=== PATIENT | male | born 2000 | race Caucasian/White ===

== ENCOUNTER 2021-02-01 12:38 | Emergency (ER) | payer BC ==
[2021-02-01] MEDS ORDERED: Sodium Chloride 0.9% 10 ML Syringe FLUSH PRN (12:55)
[2021-02-01] MEDS ORDERED: Sodium Chloride 0.9% 1,000 ML IV ONE ×2 (12:56→15:19)
[2021-02-01] MEDS ORDERED: Promethazine 25 MG/ML SDV IM ONE (12:57)
[2021-02-01 13:32] LABS: ANION GAP 14.6 meq/L (7-15); CHLORIDE,CL 107 mmol/L (98-107); SODIUM,NA 144 mmol/L (136-145)
[2021-02-01 13:48] VITALS: BP 126/77; PULSE 65
[2021-02-01 14:00] LABS: CORONAVIRUS COVID-19 NAA NEGATIVE (NEGATIVE)
[2021-02-01 14:01] LABS: RESPIRATORY SYNCYTIAL VIR NAA NEGATIVE (NEGATIVE)
--- NOTE | 2021-02-01 15:34 | EDM.PDOC ---
ED HPI GENERAL MEDICAL PROBLEM - General Chief Complaint: Abdominal Pain Stated Complaint: nausea Time Seen by Provider: 02/01/21 12:55 Source of Information: Reports: Patient, Family History Limitations: Reports: No Limitations - History of Present Illness INITIAL COMMENTS - FREE TEXT/NARRATIVE: Patient comes to ER with multiple complaints. Reports nausea for two weeks. Has not been feeling well entire time. Symptoms include muscle aches, dizziness, loose stools, productive cough, sore throat. Lungs ache. No fevers/chills. No SOB. Had telehealth visit with [facility] during that time and received Zofran. Was told to follow up with them if no improvement. Works 3rd shift at [employer]. Negative Covid test approx a week ago. Mother reports that patient has had similar episodes intermittently since he was a child. Would cause him to miss school for 3-4 days at a time. No specific cause of episodes identified. Severity of episodes increasing as pt has gotten older. Patient lives by himself at an apartment. Upper Abdominal Pain Score (Numeric/FACES): 6 - Related Data Allergies Allergy/AdvReac Type Severity Reaction Status Date / Time Penicillins Allergy Rash Verified 02/01/21 12:41 Home Meds: Home Meds Ondansetron [Zofran ODT] 1 tab SL Q6H PRN 02/01/21 [History] Past Medical History HEENT History: Reports: Impaired Vision Other HEENT History: Corrected with glasses. Gastrointestinal History: Reports: GERD, Other (See Below) Other Gastrointestinal History: Intermittent episodes abdominal pain with nausea/emesis/loose stools since he was child. Musculoskeletal History: Reports: Other (See Below) Other Musculoskeletal History: Recently seen for strained neck muscle Endocrine/Metabolic History: Reports: Obesity/BMI 30+ Dermatologic History: Reports: Urticaria, Other (See Below) Other Dermatologic History: Current rash, red in color with small, multiple pustules covering anterior and posterior truck, neck, bilateral upper arms and spreading distally, rash starting slightly on bilateral upper thighs and spreading slowly distally. - Past Surgical History HEENT Surgical History: Reports: Adenoidectomy, Tonsillectomy GI Surgical History: Reports: None Social & Family History - Tobacco Use Tobacco Use Status *Q: Never Tobacco User Second Hand Smoke Exposure: No - Caffeine Use Caffeine Use: Reports: Energy Drinks - Alcohol Use Alcohol Use History: No - Recreational Drug Use Recreational Drug Use: Yes Recreational Drug Type: Reports: Marijuana/Hashish Recreational Drug Use Comment: Patient denied using any illicit drugs but was positive for THC on drug screen ED ROS GENERAL - Review of Systems Review Of Systems: See Below Constitutional: Reports: Malaise, Decreased Appetite. Denies: Fever, Chills, Weakness, Night Sweats, Diaphoresis, Weight Loss HEENT: Reports: Throat Pain. Denies: Ear Pain, Rhinitis, Vertigo, Vision Change Respiratory: Reports: Cough, Sputum. Denies: Shortness of Breath, Wheezing, Pleuritic Chest Pain, Hemoptysis Cardiovascular: Reports: Lightheadedness. Denies: Chest Pain, Dyspnea on Exertion, Edema, Palpitations, PND, Syncope GI/Abdominal: Reports: Abdominal Pain, Diarrhea, Decreased Appetite, Nausea, Vomiting. Denies: Black Stool, Bloody Stool, Difficulty Swallowing, Distension : Reports: No Symptoms Musculoskeletal: Reports: Muscle Pain Skin: Reports: No Symptoms Neurological: Reports: Headache. Denies: Confusion, Dizziness, Paresthesia, Trouble Speaking, Difficulty Walking, Change in Speech Psychiatric: Reports: No Symptoms ED EXAM, GENERAL - Physical Exam Exam: See Below Exam Limited By: No Limitations General Appearance: Alert, Obese, Other (Keeps eyes shut most of encounter, no obvious acute distress) Eye Exam: Bilateral Eye: EOMI, PERRL Ears: Normal External Exam, Normal Canal, Hearing Grossly Normal, Normal TMs Nose: Normal Inspection Throat/Mouth: Normal Inspection, Normal Lips, Normal Oropharynx, Normal Voice, No Airway Compromise Head: Atraumatic, Normocephalic Neck: Normal Inspection, Supple, Non-Tender, Full Range of Motion Respiratory/Chest: No Respiratory Distress, Lungs Clear, Normal Breath Sounds, No Accessory Muscle Use Cardiovascular: Normal Peripheral Pulses, Regular Rate, Rhythm, No Murmur GI/Abdominal: Tender (moderate discomfort with palpation all 4 quadrants, non- focal), Abnormal Bowel Sounds (decreased bowel sounds throughout). No: Guarding, Rigid, Rebound (Male) Exam: Deferred Rectal (Males) Exam: Deferred Back Exam: No: CVA Tenderness (L), CVA Tenderness (R), Muscle Spasm, Paraspinal Tenderness, Vertebral Tenderness Extremities: Normal Inspection, Normal Range of Motion, Non-Tender, Other (cap refill 3-4 sec) Neurological: Alert, Oriented, Normal Cognition, No Motor/Sensory Deficits Psychiatric: Flat Affect Skin Exam: Warm, Dry, Intact, Normal Color Course - Vital Signs Last Recorded V/S: Last Vital Signs Temp 36.6 C 02/01/21 12:44 Pulse 65 02/01/21 13:43 Resp 20 02/01/21 13:43 BP 126/77 02/01/21 13:43 Pulse Ox 100 02/01/21 13:43 - Orders/Labs/Meds Orders: Active Orders 24 hr Category Date Time Status Abdomen Pelvis w Cont [CT] Stat Exams 02/01/21 15:17 Ordered Chest 2V [CR] Stat Exams 02/01/21 12:55 Taken STREP SCRN A RAPID W CULT CONF [RM] Stat Lab 02/01/21 13:06 Received Saline Lock Insert [OM.PC] Routine Oth 02/01/21 12:55 Ordered Labs: Laboratory Tests 02/01/21 02/01/21 02/01/21 Range/Units 13:06 13:06 13:06 WBC 7.5 (4.0-10.2) K/uL RBC 4.91 (4.33-5.41) M/uL Hgb 14.4 (13.1-16.8) g/dL Hct 41.9 (39.0-49.0) % MCV 85.3 (84.0-98.0) fL MCH 29.3 (28.2-33.3) pg MCHC 34.4 (31.7-36.0) g/dL RDW 12.8 (11.2-14.1) % Plt Count 239 (150-350) K/uL Neut % (Auto) 49.4 (45.0-80.0) % Lymph % (Auto) 37.7 (10.0-50.0) % Cannon % (Auto) 9.0 (2.0-14.0) % Eos % (Auto) 3.4 (0.0-5.0) % Baso % (Auto) 0.5 (0.0-2.0) % Neut # (Auto) 3.69 (1.40-7.00) K/uL Lymph # (Auto) 2.81 (0.50-3.50) K/uL Cannon # (Auto) 0.67 (0.00-1.00) K/uL Eos # (Auto) 0.25 (0.00-0.50) K/uL Baso # (Auto) 0.04 (0.00-0.20) K/uL D-Dimer, Quantitative < 100 (0-400) ng/mL Sodium 144 (136-145) mmol/L Potassium 3.5 (3.5-5.1) mmol/L Chloride 107 (98-107) mmol/L Carbon Dioxide 22.4 (21.0-32.0) mmol/L Anion Gap 14.6 (7-15) meq/L BUN 11 (7-18) mg/dL Creatinine 1.16 (0.51-1.17) mg/dL Est Cr Clr Drug Dosing 116.14 mL/min Estimated GFR (MDRD) > 60 mL/min Glucose 87 (70-99) mg/dL Lactic Acid (0.4-2.0) mmol/L Calcium 9.2 (8.5-10.1) mg/dL Magnesium 2.0 (1.8-2.4) mg/dL Total Bilirubin 0.5 (0.2-1.0) mg/dL AST 19 (15-37) U/L ALT 43 (12-78) U/L Alkaline Phosphatase 91 (46-116) IU/L Total Protein 7.0 (6.4-8.2) g/dL Albumin 4.3 (3.4-5.0) g/dL Amylase (25-115) U/L Lipase (73-393) U/L Specimen Type Urine Color Urine Appearance Urine pH (5.0-9.0) Ur Specific [place] (1.005-1.030) Urine Protein (NEGATIVE) mg/dL Urine Glucose (UA) (NEGATIVE) mg/dL Urine Ketones (NEGATIVE) mg/dL Urine Occult Blood (NEGATIVE) Urine Nitrite (NEGATIVE) Urine Bilirubin (NEGATIVE) Urine Urobilinogen (0.2-1.0) E.U./dL Ur Leukocyte Esterase (NEGATIVE) Urine RBC /HPF Urine WBC /HPF Ur Epithelial Cells /LPF Urine Bacteria (NONE TO FEW) /HPF Urine Opiates Screen (NEGATIVE) Ur Buprenorphine Scrn (NEGATIVE) Ur Oxycodone Screen (NEGATIVE) Ur EDDP (Meth Metab) (NEGATIVE) Ur Barbiturates Screen (NEGATIVE) Ur Tricyclics Screen (NEGATIVE) Ur Amphetamine Screen (NEGATIVE) U Methamphetamines Scrn (NEGATIVE) Urine MDMA Screen (NEGATIVE) U Benzodiazepines Scrn (NEGATIVE) U Cocaine Metab Screen (NEGATIVE) U Marijuana (THC) Screen (NEGATIVE) Influenza Type A RNA (NEGATIVE) RSV RNA (INAAT) (NEGATIVE) Influenza Type B RNA (NEGATIVE) SARS-CoV-2 RNA (ELY) (NEGATIVE) 02/01/21 02/01/21 02/01/21 Range/Units 13:06 13:06 13:06 WBC (4.0-10.2) K/uL RBC (4.33-5.41) M/uL Hgb (13.1-16.8) g/dL Hct (39.0-49.0) % MCV (84.0-98.0) fL MCH (28.2-33.3) pg MCHC (31.7-36.0) g/dL RDW (11.2-14.1) % Plt Count (150-350) K/uL Neut % (Auto) (45.0-80.0) % Lymph % (Auto) (10.0-50.0) % Cannon % (Auto) (2.0-14.0) % Eos % (Auto) (0.0-5.0) % Baso % (Auto) (0.0-2.0) % Neut # (Auto) (1.40-7.00) K/uL Lymph # (Auto) (0.50-3.50) K/uL Cannon # (Auto) (0.00-1.00) K/uL Eos # (Auto) (0.00-0.50) K/uL Baso # (Auto) (0.00-0.20) K/uL D-Dimer, Quantitative (0-400) ng/mL Sodium (136-145) mmol/L Potassium (3.5-5.1) mmol/L Chloride (98-107) mmol/L Carbon Dioxide (21.0-32.0) mmol/L Anion Gap (7-15) meq/L BUN (7-18) mg/dL Creatinine (0.51-1.17) mg/dL Est Cr Clr Drug Dosing mL/min Estimated GFR (MDRD) mL/min Glucose (70-99) mg/dL Lactic Acid 1.6 (0.4-2.0) mmol/L Calcium (8.5-10.1) mg/dL Magnesium (1.8-2.4) mg/dL Total Bilirubin (0.2-1.0) mg/dL AST (15-37) U/L ALT (12-78) U/L Alkaline Phosphatase (46-116) IU/L Total Protein (6.4-8.2) g/dL Albumin (3.4-5.0) g/dL Amylase 61 (25-115) U/L Lipase 172 (73-393) U/L Specimen Type Urine Color Urine Appearance Urine pH (5.0-9.0) Ur Specific [place] (1.005-1.030) Urine Protein (NEGATIVE) mg/dL Urine Glucose (UA) (NEGATIVE) mg/dL Urine Ketones (NEGATIVE) mg/dL Urine Occult Blood (NEGATIVE) Urine Nitrite (NEGATIVE) Urine Bilirubin (NEGATIVE) Urine Urobilinogen (0.2-1.0) E.U./dL Ur Leukocyte Esterase (NEGATIVE) Urine RBC /HPF Urine WBC /HPF Ur Epithelial Cells /LPF Urine Bacteria (NONE TO FEW) /HPF Urine Opiates Screen (NEGATIVE) Ur Buprenorphine Scrn (NEGATIVE) Ur Oxycodone Screen (NEGATIVE) Ur EDDP (Meth Metab) (NEGATIVE) Ur Barbiturates Screen (NEGATIVE) Ur Tricyclics Screen (NEGATIVE) Ur Amphetamine Screen (NEGATIVE) U Methamphetamines Scrn (NEGATIVE) Urine MDMA Screen (NEGATIVE) U Benzodiazepines Scrn (NEGATIVE) U Cocaine Metab Screen (NEGATIVE) U Marijuana (THC) Screen (NEGATIVE) Influenza Type A RNA Negative (NEGATIVE) RSV RNA (INAAT) Negative (NEGATIVE) Influenza Type B RNA Negative (NEGATIVE) SARS-CoV-2 RNA (ELY) Negative (NEGATIVE) 02/01/21 02/01/21 Range/Units 13:24 13:24 WBC (4.0-10.2) K/uL RBC (4.33-5.41) M/uL Hgb (13.1-16.8) g/dL Hct (39.0-49.0) % MCV (84.0-98.0) fL MCH (28.2-33.3) pg MCHC (31.7-36.0) g/dL RDW (11.2-14.1) % Plt Count (150-350) K/uL Neut % (Auto) (45.0-80.0) % Lymph % (Auto) (10.0-50.0) % Cannon % (Auto) (2.0-14.0) % Eos % (Auto) (0.0-5.0) % Baso % (Auto) (0.0-2.0) % Neut # (Auto) (1.40-7.00) K/uL Lymph # (Auto) (0.50-3.50) K/uL Cannon # (Auto) (0.00-1.00) K/uL Eos # (Auto) (0.00-0.50) K/uL Baso # (Auto) (0.00-0.20) K/uL D-Dimer, Quantitative (0-400) ng/mL Sodium (136-145) mmol/L Potassium (3.5-5.1) mmol/L Chloride (98-107) mmol/L Carbon Dioxide (21.0-32.0) mmol/L Anion Gap (7-15) meq/L BUN (7-18) mg/dL Creatinine (0.51-1.17) mg/dL Est Cr Clr Drug Dosing mL/min Estimated GFR (MDRD) mL/min Glucose (70-99) mg/dL Lactic Acid (0.4-2.0) mmol/L Calcium (8.5-10.1) mg/dL Magnesium (1.8-2.4) mg/dL Total Bilirubin (0.2-1.0) mg/dL AST (15-37) U/L ALT (12-78) U/L Alkaline Phosphatase (46-116) IU/L Total Protein (6.4-8.2) g/dL Albumin (3.4-5.0) g/dL Amylase (25-115) U/L Lipase (73-393) U/L Specimen Type Urinvoid Urine Color Yellow Urine Appearance Clear Urine pH >= 9.0 (5.0-9.0) Ur Specific [place] 1.015 (1.005-1.030) Urine Protein Trace H (NEGATIVE) mg/dL Urine Glucose (UA) Negative (NEGATIVE) mg/dL Urine Ketones Negative (NEGATIVE) mg/dL Urine Occult Blood Negative (NEGATIVE) Urine Nitrite Negative (NEGATIVE) Urine Bilirubin Negative (NEGATIVE) Urine Urobilinogen 0.2 (0.2-1.0) E.U./dL Ur Leukocyte Esterase Negative (NEGATIVE) Urine RBC Not seen /HPF Urine WBC Not seen /HPF Ur Epithelial Cells Occasional /LPF Urine Bacteria Occasional (NONE TO FEW) /HPF Urine Opiates Screen Negative (NEGATIVE) Ur Buprenorphine Scrn Negative (NEGATIVE) Ur Oxycodone Screen Negative (NEGATIVE) Ur EDDP (Meth Metab) Negative (NEGATIVE) Ur Barbiturates Screen Negative (NEGATIVE) Ur Tricyclics Screen Negative (NEGATIVE) Ur Amphetamine Screen Negative (NEGATIVE) U Methamphetamines Scrn Negative (NEGATIVE) Urine MDMA Screen Negative (NEGATIVE) U Benzodiazepines Scrn Negative (NEGATIVE) U Cocaine Metab Screen Negative (NEGATIVE) U Marijuana (THC) Screen Positive H (NEGATIVE) Influenza Type A RNA (NEGATIVE) RSV RNA (INAAT) (NEGATIVE) Influenza Type B RNA (NEGATIVE) SARS-CoV-2 RNA (ELY) (NEGATIVE) Meds: Medications Discontinued Medications Generic Name Dose Route Start Last Admin Trade Name Freq PRN Reason Stop Dose Admin Diatrizoate Meglum/Diatrizoate Sod 30 ml 02/01/21 16:00 02/01/21 16:25 Diatrizoate Meglumine/Diatrizoate Sodium 37% 30 Ml Bottle PO 02/01/21 16:01 30 ml ONETIME ONE Administration Sodium Chloride 1,000 mls @ 999 mls/hr 02/01/21 12:56 02/01/21 13:37 Normal Saline IV 02/01/21 13:56 999 mls/hr .BOLUS ONE Administration Sodium Chloride 1,000 mls @ 500 mls/hr 02/01/21 15:19 02/01/21 16:29 Normal Saline IV 02/01/21 17:18 500 mls/hr .BOLUS ONE Administration Iopamidol 100 ml 02/01/21 16:00 02/01/21 16:25 Iopamidol 612 Mg/Ml 100 Ml Bottle IVPUSH 02/01/21 16:01 100 ml ONETIME ONE Administration Promethazine HCl 25 mg 02/01/21 12:57 02/01/21 13:19 Promethazine 25 Mg/Ml Sdv IM 02/01/21 12:58 25 mg ONETIME ONE Administration Sodium Chloride 10 ml 02/01/21 12:55 02/01/21 16:28 Sodium Chloride 0.9% 10 Ml Syringe FLUSH 10 ml ASDIRECTED PRN Administration Keep Vein Open - Re-Assessments/Exams Free Text/Narrative Re-Assessment/Exam: 02/01/21 15:46 Patient's vital signs stable. Afebrile. Chest xray unremarkable for focal pneumonia/acute changes. Basic labs obtained and IV fluid bolus + phenergan ordered. Patient appeared to be comfortably sleeping while labs processed. Labs unremarkable, including CBC/Chem/Mag/Lactic/amylase/lipase/ddimer/UA/Covid/Influenza/RSV. Call placed to patient's primary clinic, [facility], and patient reviewed with provider familiar with patient. She notes that patient usually only presents to clinic when he wants a work note, and that he has a histrionic pattern when presenting to clinic. Clinic has discussed arranging for celiac testing with patient. It was noted here that when patient was questioned he would be more dramatic with breathing pattern and with interaction with caregivers, but would quickly revert to sleeping and have normal respiratory pattern when left alone. Given the unremarkable workup and chronic pattern of patient's symptoms, this may reflect food sensitivity or other chronic GI disorder. He has not had an abdominal CT per Mom, and for a more thorough workup a CT study was ordered. Will given an additional liter of IV fluids while waiting for results. Free Text/Narrative Re-Assessment/Exam: 02/01/21 18:05 No Radiology report received as of yet. Patient sleeping in ER. Patient's mother requests a note for [employer] excusing patient from working tonight. Free Text/Narrative Re-Assessment/Exam: 02/01/21 19:00 Significant hold up in receiving Radiology report. Pt and his mother wish to be discharged home and have us call with results. Patient up and walking. No distress. Appears comfortable. OK to be discharged from ER. Will call with Radiology results once available. To follow up with [facility]/consider GI referral and additional testing as needed. 02/01/21 19:52 CT report available. No acute findings. Mild bladder wall thickening questioned. Pt denied urinary complaints and had normal UA. Incidental small lung finding that may reflect granuloma. Will need to follow up for that with PCP and be rechecked at some point. Patient did have + result for THC. Differential now includes Cannabis-induced abdominal pain/hyperemesis. Nursing contacted patient's mother with results (he gave permission verbally with us to share during stay in ER. Mother present and stayed with patient during entire ED encounter) Departure - Departure Time of Disposition: 19:04 Disposition: Home, Self-Care 01 Condition: Good Clinical Impression: Nausea vomiting and diarrhea, Cough, Marijuana use, Nodule of lower lobe of left lung - Discharge Information *PRESCRIPTION DRUG MONITORING PROGRAM REVIEWED*: Not Applicable *COPY OF PRESCRIPTION DRUG MONITORING REPORT IN PATIENT MARY: Not Applicable Instructions: Food Choices to Help Relieve Diarrhea, Adult Referrals: Heidi Ovalle PA-C [Primary Care Provider] - Forms: ED Department Discharge Additional Instructions: Follow up with [facility] for recheck tomorrow or if symptoms not improving. Rest/hydration. Strongly advise considering elimination diet based on history of frequent similar episodes over the years. Consider GI referral from [facility] for further evaluation. We will call you if there are concerns on CT study once Radiology contacts us with results. Sepsis Event Note (ED) - Evaluation Sepsis Screening Result: No Definite Risk - Focused Exam Vital Signs: Vital Signs Temp Pulse Resp BP Pulse Ox 02/01/21 13:43 65 20 126/77 100 02/01/21 13:00 78 20 142/72 H 100 02/01/21 12:44 36.6 C 68 24 H 146/86 H 100 - My Orders Last 24 Hours: My Active Orders 02/01/21 12:55 Chest 2V [CR] Stat Saline Lock Insert [OM.PC] Routine 02/01/21 13:06 STREP SCRN A RAPID W CULT CONF [RM] Stat 02/01/21 15:17 Abdomen Pelvis w Cont [CT] Stat - Assessment/Plan Last 24 Hours: My Active Orders 02/01/21 12:55 Chest 2V [CR] Stat Saline Lock Insert [OM.PC] Routine 02/01/21 13:06 STREP SCRN A RAPID W CULT CONF [RM] Stat 02/01/21 15:17 Abdomen Pelvis w Cont [CT] Stat
[2021-02-01] MEDS ORDERED: Diatrizoate Meglumine/Diatrizoate Sodium 37% 30 ML Bottle PO ONE (16:00)
[2021-02-01] MEDS ORDERED: Iopamidol 612 MG/ML 100 ML Bottle IVPUSH ONE (16:00)
[2021-02-01 16:31] LABS: BARBITURATE SCREEN,URINE NEGATIVE (NEGATIVE); BENZODIAZEPINES SCREEN,URINE NEGATIVE (NEGATIVE); BUPRENORPHINE SCREEN,URINE NEGATIVE (NEGATIVE); EDDP,URINE SCREEN NEGATIVE (NEGATIVE); TCA SCREEN,URINE NEGATIVE (NEGATIVE); THC SCREEN,URINE 50 NG/ML POSITIVE (NEGATIVE)
== END 2021-02-01 19:20 | disposition home or self-care (01) ==
LOC: LL.ED 12:38
DX: R11.2 Nausea with vomiting, unspecified (principal); R19.7 Diarrhea, unspecified; R05.9 Cough, unspecified; R91.1 Solitary pulmonary nodule; F12.90 Cannabis use, unspecified, uncomplicated; E66.9 Obesity, unspecified; Z88.0 Allergy status to penicillin; Z20.822 Contact with and (suspected) exposure to COVID-19; Z68.35 Body mass index [BMI] 35.0-35.9, adult
CPT/HCPCS: 0241U; 36415; 71046; 74177; 80053; 80305-QW; 81001; 82150; 83605; 83690; 83735; 85025; 85379; 87081; 87430; 96372; 99284; 99284-25; J2550; J7030; Q9963; Q9967

== ENCOUNTER 2021-03-24 10:13 | Day surgery (SDC) | payer BC ==
[~2021-03-24 10:13] MED LIST: Ketamine 500 mg/10 ML MDV ONE; Midazolam 1 MG/ML 2 ML SDV ONE; Propofol 200 MG/20 ML SDV ONE; Sodium Chloride 0.9% 10 ML Syringe FLUSH SCH
[2021-03-24] MEDS ORDERED: Lactated Ringers 1,000 ML IV SCH (11:00)
--- NOTE | 2021-03-24 11:00 | PCM.HPR ---
H & P Addendum review - H & P Addendum Review Date of Original H & P: 03/03/21 Date Reviewed: 03/24/21 Time Reviewed: 10:57 Patient was Examined: No Changes
[2021-03-24] MEDS ORDERED: Ketamine 500 mg/10 ML MDV ONE (11:12)
[2021-03-24] MEDS ORDERED: Propofol 200 MG/20 ML SDV ONE (11:12)
[2021-03-24] MEDS ORDERED: Lidocaine 2% 5 ML SDV ONE (11:12)
[2021-03-24] MEDS ORDERED: Midazolam 1 MG/ML 2 ML SDV ONE (11:12)
[2021-03-24] MEDS ORDERED: Glycopyrrolate 0.2 MG/ML SDV ONE (11:12)
[2021-03-24] MEDS ORDERED: Ondansetron 4 MG/2 ML SDV ONE (11:12)
--- NOTE | 2021-03-24 11:41 | PCM.OPNOTE ---
- General Post-Op/Procedure Note Date of Surgery/Procedure: 03/24/21 Operative Procedure(s): EGD with Bx & Colonoscopy Findings: Mild distal esophagitis, normal colon Pre Op Diagnosis: Abd pain, pos FIT Post-Op Diagnosis: Same Anesthesia Technique: MAC Primary Surgeon: Troy Quan Anesthesia Provider: Azalia Barrientos EBL in mLs: 0 Complications: None Condition: Good
[2021-03-24 12:16] VITALS: BP 124/92; PULSE 102
--- NOTE | 2021-03-24 13:31 | OR ---
Date of Procedure: 03/24/2021 PREOPERATIVE DIAGNOSES: 1. Abdominal pain. 2. Hemoccult-positive stool. PROCEDURE: 1. Esophagogastroduodenoscopy with biopsy. 2. Colonoscopy. ANESTHESIA: IV sedation. PROCEDURE IN DETAIL: Patient was brought to the procedure room where he was placed on his left side and IV sedation administered. Oral bite block was placed and the upper endoscope advanced into the esophagus under direct vision without difficulty. Vocal cords were viewed and were normal. The scope was advanced to the third portion of the duodenum. Duodenum and pylorus were normal. Antrum and body of the stomach were normal. Retroflexion reveals a melissa-appearing fundus. Squamocolumnar junction is slightly irregular with some evidence of mild reflux esophagitis. I did take 2 biopsies from the distal esophagus for pathology review. Air was removed from the stomach and the scope withdrawn through the remaining esophagus, which appears normal. The patient tolerated this portion of the procedure well. Next, colonoscopy was performed after digital rectal exam was done, which was normal. Colonoscope was inserted and advanced to the level of the cecum without difficulty. The prep was good with some thick liquid stool remaining that was mostly irrigated and suctioned. Upon withdrawing the scope, the ascending, transverse, and descending colon were normal in appearance. Sigmoid colon and rectum were normal. Retroflexion was normal. Air was removed and the scope withdrawn. Patient tolerated the procedure well and returned to recovery in stable condition. FOLLOWUP: The patient to follow up with Heidi Ovalle next week for review of pathology report and ongoing care. BRENDAN MCGUIRE MD /[id number]
--- NOTE | 2021-03-28 07:47 | PCM.SN.2 ---
- Free Text/Narrative Note: 200mg of Propofal given in total for the anesthesia for the procedure. Azalia Barrientos
== END 2021-03-24 13:00 | disposition home or self-care (01) ==
LOC: LL.SDS 10:13
PROVIDERS: ATTEND Surgery
DX: R19.5 Other fecal abnormalities (principal); K21.00 Gastro-esophageal reflux disease with esophagitis, without bleeding; R19.7 Diarrhea, unspecified; F41.9 Anxiety disorder, unspecified; Z79.899 Other long term (current) drug therapy; Z88.0 Allergy status to penicillin; E66.9 Obesity, unspecified; Z68.34 Body mass index [BMI] 34.0-34.9, adult
CPT/HCPCS: 00813; J2250; J2405; J2704; J3490; J7120

== ENCOUNTER 2021-08-03 22:46 | Emergency (ER) | payer BC ==
[2021-08-03] MEDS ORDERED: Sodium Chloride 0.9% 10 ML Syringe FLUSH PRN (23:27)
[2021-08-03 23:29] VITALS: BP 120/80; PULSE 100
[2021-08-03 23:39] LABS: ANION GAP 11.1 meq/L (7-15); CHLORIDE,CL 105 mmol/L (98-107); SODIUM,NA 141 mmol/L (136-145)
[2021-08-04] MEDS ORDERED: Lactated Ringers 1,000 ML IV ONE (00:06)
== END 2021-08-04 00:45 | disposition home or self-care (01) ==
LOC: LL.ED 22:46
DX: R11.2 Nausea with vomiting, unspecified (principal); K21.9 Gastro-esophageal reflux disease without esophagitis; E66.9 Obesity, unspecified; Z68.30 Body mass index [BMI] 30.0-30.9, adult; Z88.0 Allergy status to penicillin; Z91.048 Other nonmedicinal substance allergy status; Z79.899 Other long term (current) drug therapy
CPT/HCPCS: 36415; 80053; 85025; 86850; 86900; 86901; 93005; 96360; 99284-25; J7120